=== PATIENT | female | born 1945 | race Caucasian/White ===

== ENCOUNTER 2025-01-31 07:05 | Inpatient (IN) | payer OTHER, SELFPAY ==
--- NOTE | 2025-01-19 10:20 | CM ---
Addendum entered by Suze Pablo RN 01/22/25 10:31:
CM reviewed medical records. CM spoke with patient via live telephone. Patient confirmed demographics. Patient stated that her son with provide transportation post operatively. Patient has had a history of VN, but it currently not on service.
Patient does not have a SNF history. Patient does have a walker. Patient is active with her PCP. Patient plans [facility] use [facility].
Patient was unaware that she would have to make an outpatient PT appointment. Patient does have an outpatient facility picked out: [facility], [place] in [place]. Patient stated that she would have to take an uber back and forth to her appointments. Patient
would be agreeable to homecare if needed.
Plan: Home with outpatient PT vs. VN
Addendum entered by Suze Pablo RN 01/22/25 08:10:
COURTNEY left message.
Original Note:
COURTNEY left message.
[2025-01-24 13:15] VITALS: BMI 25.8
[2025-01-24 14:19] VITALS: BMI 25.8
[2025-01-24 14:32] LABS: Hematocrit 35.4 % (37.0-47.0); Hemoglobin 11.5 g/dL (12.0-16.0); Mean Corp Hgb Conc. 32.5 g/dL (33.0-37.0); Mean Corpuscular Volume 80.1 fL (81.0-99.0); Platelet Count 230 10^3/uL (130-400); Red Cell Dist. Width 14.6 % (11.5-14.5)
[2025-01-24 14:55] LABS: ALT (SGPT) 18 U/L (0-35); AST (SGOT) 24 U/L (14-36); Albumin 4.6 g/dl (3.5-5.0); Alkaline Phosphatase 145 U/L (38-126); Blood Urea Nitrogen 12 mg/dl (7-17); Calcium 9.5 mg/dl (8.4-10.2); Carbon Dioxide 25 mmol/L (22-30); Chloride 105 mmol/L (98-107); Estimated Creatinine Clearance 55 ml/min; Glucose 99 mg/dl (70-99); Potassium 5.0 mmol/L (3.5-5.1); Sodium 136 mmol/L (135-145); Total Protein 7.2 g/dl (6.3-8.2); eGFR > 60.00
[2025-01-24 15:37] LABS: Iron 60 ug/dl (37-170)
[2025-01-24 15:46] LABS: Total Iron Binding Capacity 382 ug/dl (265-497)
[2025-01-24 16:14] LABS: Ferritin 9.3 ng/ml (11.1-264.0)
[2025-01-24 16:46] LABS: Folate 7.1 ng/ml (2.76-20); Vitamin B12 317 pg/ml (239-931)
[2025-01-25 07:55] LABS: Glycohemoglobin (HgbA1c) 5.7 % (4.0-5.6)
[2025-01-31] VITALS (12 sets, daily range): BP systolic 94–142; BP diastolic 52–88; PULSE 64; BMI 25.8
[2025-01-31] MEDS: CELEBREX 200 MG PO (07:29)
[2025-01-31] MEDS: NORMOSOL-R/PLASMALYTE-A 1000 IV ×2 (07:30→11:17)
[2025-01-31] MEDS: TYLENOL 650 MG PO ×5 (07:30→23:24)
--- NOTE | 2025-01-31 08:06 | W.PN.UPDATE ---
Update Note
Progress Note Update
L knee OA s/p L TKA w/ Dr Lorenz 01/31/25
- s/p L FERNANDO, 2017, and R TKA, 2018, w/ Dr Lorenz
DVT prophylaxis - ASA per surgeon, b/l venous foot pumps
HTN - + parameters - monitor BP
Remote subclavian venous thrombus, treated with Coumadin - given the remoteness of this event (1996), will choose ASA for DVT prophylaxis
- Early mobility as tolerated
- Plasma flow devices HIGHLY recommended for outpatient use
GERD and Hiatal hernia - continue PPI therapy
Chronic constipation - add daily Miralax to bowel regimen of Colace and Senna
Memory disorder, on Donepezil - minimize opioids as able (previously tolerated Oxy)
Peripheral neuropathy - continue Gabapentin and Lyrica
Ambulatory dysfunction - on fall precautions
Mild anemia w/ borderline low iron - non-invasive hgb in AM
- IV iron during admission
- PO iron upon d/c
HLD
First-degree AV block
Abdominal aortic atherosclerosis
Venous varicosities with insufficiency
Colon polyps
Right-sided trigeminal neuralgia, on Carbamazepine
Hypothyroidism
Overactive bladder
Osteoporosis
Mild leukopenia
Prediabetes, A1c 5.7
History of tobacco abuse
The patient may need home PT/VN upon d/c
[2025-01-31] MEDS: ROXICODONE 5 MG PO (10:33)
--- NOTE | 2025-01-31 11:30 | PTCARENOTE ---
Pt arrived to 2S in bed. Full assessment completed. L knee primaseal with a scant amount of drainage. B/L LE neurovascular assessment WDL. IVF initiated. Pt educated on diet and to ring for assistance when getting OOB, verbalized understanding. Bed
locked and in the lowest position, safety maintained. Oriented to room and call loja.
[2025-01-31] MEDS: DETROL LA 4 MG PO (12:11)
[2025-01-31] MEDS: LYRICA 100 MG PO ×2 (12:11→20:35)
[2025-01-31] MEDS: PROTONIX 40 MG PO (12:12)
[2025-01-31] MEDS: WELLBUTRIN XL (24 hour extended release) 150 MG PO (12:12)
[2025-01-31] MEDS: ZOLOFT 50 MG PO (12:12)
[2025-01-31] MEDS: ANCEF 5 IV ×2 (14:42→22:11)
[2025-01-31] MEDS: FERRLECIT 110 MG IV (14:43)
[2025-01-31] MEDS: TEGRETOL 200 MG PO ×2 (17:24→22:05)
[2025-01-31] MEDS: ARICEPT 10 MG PO (17:24)
[2025-01-31] MEDS: NEURONTIN 400 MG PO ×2 (17:24→22:05)
[2025-01-31] MEDS: ASPIRIN 325 MG PO (17:24)
[2025-01-31] MEDS: BACTROBAN 2% OINTMENT 1 APPLIC NASAL (20:34)
[2025-01-31] MEDS: SENOKOT 17.2 MG PO (20:35)
[2025-01-31] MEDS: COLACE 100 MG PO (20:35)
[2025-01-31] MEDS: LIORESAL 5 MG PO (20:35)
[2025-01-31] MEDS: DECADRON 4 MG PO (20:35)
[2025-01-31] MEDS: REMERON 7.5 MG PO (22:05)
[2025-01-31] MEDS: LIPITOR 40 MG PO (22:05)
[2025-01-31] MEDS: TUMS CHEWABLE TABLET 200 MG PO (22:05)
[2025-02-01 03:01] VITALS: BP 107/60
[2025-02-01] MEDS: TYLENOL 650 MG PO ×2 (03:13→08:11)
[2025-02-01] MEDS: SYNTHROID 100 MCG PO (05:19)
[2025-02-01 07:45] VITALS: BP 120/86
[2025-02-01] MEDS: LIORESAL 5 MG PO (08:10)
[2025-02-01] MEDS: PROTONIX 40 MG PO (08:11)
[2025-02-01] MEDS: LYRICA 100 MG PO (08:11)
[2025-02-01] MEDS: COLACE 100 MG PO (08:11)
[2025-02-01] MEDS: DETROL LA 4 MG PO (08:11)
[2025-02-01] MEDS: SENOKOT 17.2 MG PO (08:11)
[2025-02-01] MEDS: ASPIRIN 325 MG PO (08:11)
[2025-02-01] MEDS: TEGRETOL 200 MG PO (08:11)
[2025-02-01] MEDS: DECADRON 4 MG PO (08:12)
[2025-02-01] MEDS: MIRALAX 17 GRAMS PO (08:12)
[2025-02-01] MEDS: CELEBREX 200 MG PO (08:12)
[2025-02-01] MEDS: NEURONTIN 400 MG PO (08:12)
[2025-02-01] MEDS: WELLBUTRIN XL (24 hour extended release) 150 MG PO (08:12)
[2025-02-01] MEDS: BACTROBAN 2% OINTMENT 1 APPLIC NASAL (08:12)
[2025-02-01] MEDS: ZOLOFT 50 MG PO (08:12)
[2025-02-01 10:47] VITALS: BP 134/74; PULSE 73; O2SAT 95
--- NOTE | 2025-02-01 10:53 | CM ---
Patient seen at bedside on . Patient stated that she lives alone and her plan is home with friends support. Patient with difficulty to get to outpatient therapy so plan is for home with [facility] home care and PT/OT. Patient PCP is Dr. Conway
and [facility] [place]. Patient friend to transport patient home. Patient reviewed options and indicated that she would like [facility]. IMM completed and signed form placed on chart. CM will continue to follow for discharge
planning needs.
Plan;home with [facility] for follow up with pt/ot
[2025-02-01 11:25] VITALS: BP 134/80
--- NOTE | 2025-02-01 11:33 | W.PN.ORTHO ---
Today's Communication / Plan
-
Await PT recs. Pt did overall well w/ OT.
D/c later today if remaining clinically stable.
Assessment
.
Distal Motor Intact: Yes
Dressing:
Clean, dry and intact.
Assessment:
L knee OA s/p L TKA w/ Dr Lorenz 01/31/25
- s/p L FERNANDO, 2017, and R TKA, 2018, w/ Dr Lorenz
DVT prophylaxis - ASA per surgeon, b/l venous foot pumps
HTN - + parameters - BPs overall stable
Remote subclavian venous thrombus, treated with Coumadin - given the remoteness of this event (1996), will choose ASA for DVT prophylaxis
- Early mobility as tolerated
- Plasma flow devices HIGHLY recommended for outpatient use
GERD and Hiatal hernia - continue PPI therapy
Chronic constipation - added daily Miralax to bowel regimen of Colace and Senna
Memory disorder, on Donepezil - minimize opioids as able (previously tolerated Oxy)
- Will d/c w/ Tylenol w/ Codeine over Oxycodone
Peripheral neuropathy - continue Gabapentin and Lyrica
Ambulatory dysfunction - on fall precautions
Mild anemia w/ borderline low iron - non-invasive hgb 10.9 POD 1
- IV iron during admission
- PO iron upon d/c
- Of note, pt asymptomatic and hemodynamically stable
HLD
First-degree AV block
Abdominal aortic atherosclerosis
Venous varicosities with insufficiency
Colon polyps
Right-sided trigeminal neuralgia, on Carbamazepine
Hypothyroidism
Overactive bladder
Osteoporosis
Mild leukopenia
Prediabetes, A1c 5.7
History of tobacco abuse
The patient will need home PT/VN upon d/c
Plan
.
Surgery / Date: L TKA w/ Dr Lorenz 01/31/25
DVT Prophylaxis: Aspirin
Activity:
Out of bed.
PT/OT
Discharge Plan: Home w/ VN
Subjective
.
.:
Patient resting comfortably in her bed.
L knee pain well controlled w/ minimal narcotic use overnight. Pt prefers Tylenol with Codeine over Oxycodone upon d/c.
Denies any new significant complaints.
Eager for potential d/c today.
Vital Signs and Labs
.
Vital Signs and Labs:
Lab Results
01/24/25 13:26
01/24/25 13:26
Temp Pulse Resp BP Pulse Ox
98.0 F 71 18 120/86 96
02/01/25 07:45 02/01/25 08:10 02/01/25 07:45 02/01/25 08:10 02/01/25 07:45
Non-invasive Hgb result: 10.9
Physical Exam
-
HEENT: No pallor, cyanosis, or jaundice. Throat clear.
NECK: Supple. No JVD.
RESPIRATORY: Lungs clear to auscultation.
CVS: S1, S2 normal. RRR.�
ABDOMEN: Soft, non-tender. No distension.
EXTREMITIES: Mild expected post-surgical L knee edema. Strength equal, no calf pain with palpation/dorsiflexion. Calves soft.
AIR GRINDER: AOx3. No focal deficits. collect on delivery clerk grossly intact
--- NOTE | 2025-02-01 11:55 | W.DS.TRANS ---
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
-
Discharge Instructions:
Sleep Apnea Risk Low
Discharge Diagnosis/Procedures L knee OA s/p L TKA w/ Dr Lorenz 01/31/25
Diet Other diet
Additional Diets Diabetic carb controlled x1 week for wound
healing/infection prevention.
Adequate hydration, minimize opioids, and wear
TEDs stockings to prevent low blood pressure/
dizziness.
Activity With Walker,As tolerated
Driving Restrictions Not until seen by your Dr
Bathing Restrictions OK to Shower
Other Services VN,PT
Wound Care Dressing to be removed 1 week post-surgery.
Instructions:
Stand-Alone Forms: Total Hip/Knee Replacement D/C
Changes to Home Medications: Yes
Discharge Medications:
DC Medications w/original date entered in mycir[facility]
bupropion HCl 150 mg tablet,12 hr sustained-release 150 mg PO .IN THE AM 02/19/17
carbamazepine 200 mg tablet 200 mg PO TID 02/19/17
levothyroxine 100 mcg tablet 100 mcg PO DAILY 02/19/17
omeprazole 20 mg capsule,delayed release 40 mg PO DAILY 02/19/17
atorvastatin 40 mg tablet 40 mg PO HS 01/23/25
donepezil 10 mg tablet 10 mg PO QPM 01/23/25
food supplemt, lactose-reduced (Ensure oral liquid) 1 ea PO HS 01/23/25
gabapentin 400 mg capsule 400 mg PO TID 01/23/25
mirtazapine 7.5 mg tablet 7.5 mg PO HS 01/23/25
sertraline 50 mg tablet 50 mg PO DAILY 01/23/25
tolterodine 4 mg capsule,extended release 24 hr 4 mg PO DAILY 01/23/25
mupirocin 2 % topical ointment 1 applic intranasal BID #1 tube 01/24/25
acetaminophen 300 mg-codeine 30 mg tablet 1 - 2 tab PO Q6H PRN moderate-severe pain #30 tabs 02/01/25
acetaminophen 325 mg tablet 650 mg (2 x 325 mg) PO Q6H PRN mild pain #60 tabs 02/01/25
aspirin 325 mg tablet 325 mg PO DAILY #30 tabs 02/01/25
baclofen 10 mg tablet 5 mg (1/2 x 10 mg) PO BID #1 tab 02/01/25
celecoxib 200 mg capsule 200 mg PO DAILY #30 caps 02/01/25
dexamethasone 4 mg tablet 4 mg PO BID Anti-inflammatory #5 tabs 02/01/25
docusate sodium 100 mg capsule 100 mg PO BID #30 caps 02/01/25
ferrous sulfate 325 mg (65 mg iron) tablet 325 mg PO DAILY #30 tabs 02/01/25
nifedipine 30 mg tablet,extended release 30 mg PO DAILY #1 tab 02/01/25
polyethylene glycol 3350 17 gram oral powder packet 17 g PO DAILY #14 ea 02/01/25
pregabalin 100 mg capsule 100 mg PO BID #1 cap 02/01/25
prochlorperazine maleate 5 mg tablet 5 mg PO Q8HPRN PRN nausea/vomiting #30 tabs 02/01/25
sennosides 8.6 mg tablet (Dilcia-zack) 17.2 mg (2 x 8.6 mg) PO BID #30 tabs 02/01/25
Home Medication Changes
acetaminophen 300 mg-codeine 30 mg tablet 1 - 2 tab PO Q6H PRN moderate-severe pain #30 tabs 02/01/25
acetaminophen 325 mg tablet 650 mg (2 x 325 mg) PO Q6H PRN mild pain #60 tabs 02/01/25
aspirin 325 mg tablet 325 mg PO DAILY #30 tabs 02/01/25
celecoxib 200 mg capsule 200 mg PO DAILY #30 caps 02/01/25
dexamethasone 4 mg tablet 4 mg PO BID Anti-inflammatory #5 tabs 02/01/25
docusate sodium 100 mg capsule 100 mg PO BID #30 caps 02/01/25
ferrous sulfate 325 mg (65 mg iron) tablet 325 mg PO DAILY #30 tabs 02/01/25
polyethylene glycol 3350 17 gram oral powder packet 17 g PO DAILY #14 ea 02/01/25
prochlorperazine maleate 5 mg tablet 5 mg PO Q8HPRN PRN nausea/vomiting #30 tabs 02/01/25
sennosides 8.6 mg tablet (Dilcia-zack) 17.2 mg (2 x 8.6 mg) PO BID #30 tabs 02/01/25
Pending Results: No
[2025-02-01 12:10] VITALS: BP 147/70; PULSE 72; O2SAT 96
== END 2025-02-01 13:03 | disposition home health service (06) | DRG 470 ==
LOC: 2 SOUTH 07:05
PROVIDERS: ADMITTING PHYSICIAN Orthopaedic Surgery; FAMILY PHYSICIAN Family Medicine
PROC: 0SRD0J9 Replacement of Left Knee Joint with Synthetic Substitute, Cemented, Open Approach (ICD-10-PCS; 2025-01-31)
DX: M17.12 Unilateral primary osteoarthritis, left knee (principal); I10 Essential (primary) hypertension; E78.5 Hyperlipidemia, unspecified; I44.0 Atrioventricular block, first degree; I70.0 Atherosclerosis of aorta; K21.9 Gastro-esophageal reflux disease without esophagitis; K44.9 Diaphragmatic hernia without obstruction or gangrene; K59.09 Other constipation; G50.0 Trigeminal neuralgia; G62.9 Polyneuropathy, unspecified; E03.9 Hypothyroidism, unspecified; N32.81 Overactive bladder; D64.9 Anemia, unspecified; M81.0 Age-related osteoporosis without current pathological fracture; D72.819 Decreased white blood cell count, unspecified; R73.03 Prediabetes; Z60.2 Problems related to living alone; Z96.642 Presence of left artificial hip joint; Z96.651 Presence of right artificial knee joint; Z87.891 Personal history of nicotine dependence; Z86.0100 Personal history of colon polyps, unspecified; Z86.718 Personal history of other venous thrombosis and embolism; Z79.82 Long term (current) use of aspirin; Z79.890 Hormone replacement therapy; Z90.710 Acquired absence of both cervix and uterus; Z59.82 Transportation insecurity
CPT/HCPCS: 36415; 73560; 80053; 82607; 82728; 82746; 83036; 83540; 83550; 85027; 86850; 86900; 86901; 87070; 93005; 97110; 97116; 97162; 97166; 97530; 97535; C1713; C1776; J2916